=== PATIENT | female | born 1950 | race Caucasian/White ===

== ENCOUNTER 2019-12-15 14:22 | Inpatient (IN) | payer MEDICARE, OTHER ==
[~2019-12-15] VITALS: Ht 152.4 cm; Wt 74.8 kg
--- NOTE | 2019-12-15 15:04 | NUR ---
SLIP AND FALL, NOW CONFUSED, L CHEEK ABRASION, SEVERE R UPPER ARM PAIN PT TO BED 7, PLACED ON MONITOR, VSS, NAD NTOED, -SOB, PENDING ER PROVIDER LAURE
[2019-12-15] MEDS ORDERED: TDAP [DIPH/PERTUSSIS/TET] 0.5 ML VIAL IM ONE ×2 (15:30→20:45)
[2019-12-15 15:48] LABS: BASOPHILS % (AUTO) 0.3 % (0.0-2.0); EOSINOPHILS % (AUTO) 1.4 % (0.0-6.0); HEMATOCRIT 39 % (33-45); HEMOGLOBIN 12.9 g/dL (11.5-14.8); LYMPHOCYTES % (AUTO) 20.4 % (20.0-44.0); MEAN CORPUSCULAR HGB CONC 33 g/dl (31.0-36.0); MEAN CORPUSCULAR VOLUME 89 fL (82-100); MONOCYTES # (AUTO) 0.6 /CMM (0.1-1.30); MONOCYTES % (AUTO) 6.3 % (2.0-12.0); NEUTROPHILS # (AUTO) 6.9 /CMM (1.8-8.9); NEUTROPHILS % (AUTO) 71.6 % (43.0-81.0); PLATELET COUNT (AUTO) 250 /CMM (150-450); RED BLOOD CELL COUNT(AUTO) 4.39 MIL/uL (4.0-5.2); WHITE BLOOD COUNT (AUTO) 9.7 K/uL (4.3-11.0)
[2019-12-15 16:06] LABS: CALCIUM, SERUM 9.2 mg/dL (8.5-10.1); CREATININE 0.6 mg/dL (0.6-1.3); POTASSIUM 4.7 mmol/L (3.5-5.1)
--- NOTE | 2019-12-15 16:51 | NUR ---
CALLED [facility], PAGED DR OTOOLE
[2019-12-15] MEDS ORDERED: MORPHINE SULFATE INJ 2 MG/ML DISP.SYRIN IV ONE (17:00)
[2019-12-15] MEDS ORDERED: ONDANSETRON HCL/PF - ER 4 MG/2 ML VIAL IV ONE (17:00)
--- NOTE | 2019-12-15 17:03 | NUR ---
CALLED [facility], PLANTING SUPERVISOR WAS PAGED.
[2019-12-15] MEDS ORDERED: MORPHINE SULFATE INJ 2 MG/ML DISP.SYRIN ONE (17:08)
[2019-12-15] MEDS ORDERED: ONDANSETRON HCL/PF 4 MG/2 ML VIAL ONE (17:08)
--- NOTE | 2019-12-15 17:50 | NUR ---
CALLED [facility], ITS THERESA.
--- NOTE | 2019-12-15 19:49 | NUR ---
CALLED NURSING SUP FOR MS BED
[2019-12-15] MEDS ORDERED: ASPI-1152 PO (21:35)
[2019-12-15] MEDS ORDERED: CALC500T52 PO (21:35)
[2019-12-15] MEDS ORDERED: LISI-607 PO (21:37)
--- NOTE | 2019-12-15 21:39 | NUR ---
PT TRANSPORTED TO 2ND FLOOR MS
--- NOTE | 2019-12-15 21:40 | NUR ---
MS2/RN RECEIVED PATIENT FROM [facility] ADMITTED FOR RIGHT SHOULDER FRACTURE, PATIENT IS AWAKE, ALERT, AND ORIENTED, COMFORTABLE, NO DISTRESS NOTED, MADE COMFORTABLE IN BED, ADMISSION DONE PER PROTOCOL, ABLE TO TAKE PICTURE OF THE REDNESS AND ABRASIONS AT LEFT SIDE OF THE FACE BUT REFUSED FURTHER PHYSICAL/SKIN ASSESSMENT. SON AT BEDSIDE, INFORMATIONS TAKEN FROM PATIENT AND SON, PLAN OF CARE DISCUSSED VERBALIZED UNDERSTANDING AND AGREEMENT TO THE PLAN OF CARE, FALL PRECAUTIONS, WILL MONITOR.
[2019-12-15 22:00] VITALS: BP 131/64
[2019-12-15] MEDS ORDERED: ACETAMINOPHEN 325 MG TABLET PO PRN (23:00)
[2019-12-15] MEDS ORDERED: MINERAL OIL/PETROL OINT 396 GM JAR TP PRN (23:00)
[2019-12-15] MEDS ORDERED: Z GUARD REMEDY 2 OZ OINT TP PRN (23:00)
[2019-12-15] MEDS ORDERED: ONDANSETRON HCL/PF 4 MG/2 ML VIAL IVP PRN (23:00)
[2019-12-15] MEDS: HYDROCODONE/APAP 5/325MG 1 EACH TABLET PO PRN (23:10)
[2019-12-15] MEDS: IV NS 0.9% 1,000 ML IV PRN (23:14)
--- NOTE | 2019-12-16 00:40 | NUR ---
MS/RN PATIENT IS SLEEPING AT THIS TIME, APPEAR COMFORTABLE, NO SIGNS OF DISTRESS NOTED, CALL LIGHT IN REACH, WILL CONTINUE TO MONITOR.
[2019-12-16 06:27] LABS: BASOPHILS % (AUTO) 0.3 % (0.0-2.0); EOSINOPHILS % (AUTO) 0.2 % (0.0-6.0); HEMATOCRIT 35 % (33-45); HEMOGLOBIN 11.6 g/dL (11.5-14.8); LYMPHOCYTES # (AUTO) 1.7 /CMM (0.8-4.8); LYMPHOCYTES % (AUTO) 19.5 % (20.0-44.0); MEAN CORPUSCULAR HGB CONC 33 g/dl (31.0-36.0); MEAN CORPUSCULAR VOLUME 87 fL (82-100); MONOCYTES # (AUTO) 0.6 /CMM (0.1-1.30); MONOCYTES % (AUTO) 6.7 % (2.0-12.0); NEUTROPHILS # (AUTO) 6.3 /CMM (1.8-8.9); NEUTROPHILS % (AUTO) 73.3 % (43.0-81.0); PLATELET COUNT (AUTO) 233 /CMM (150-450); RED BLOOD CELL COUNT(AUTO) 4.02 MIL/uL (4.0-5.2); WHITE BLOOD COUNT (AUTO) 8.6 K/uL (4.3-11.0)
[2019-12-16 06:45] LABS: ALBUMIN 3.2 g/dL (3.4-5.0); BILIRUBIN,TOTAL 0.9 mg/dL (0.2-1.0); CALCIUM, SERUM 8.9 mg/dL (8.5-10.1); CREATININE 0.7 mg/dL (0.6-1.3); MAGNESIUM 1.9 mg/dL (1.8-2.4); POTASSIUM 4.1 mmol/L (3.5-5.1); TOTAL PROTEIN, SERUM 6.8 g/dL (6.4-8.2)
--- NOTE | 2019-12-16 06:45 | NUR ---
MS/RN PATIENT APPEAR SLEEPING, APPEAR COMFORTABLE, NO SIGNS OF DISTRESS NOTED, CALL LIGHT IN REACH, ALL NEEDS ATTENDED AT THIS TIME, WILL CONTINUE TO MONITOR.
[2019-12-16 07:46] LABS: THYROID STIMULATING HORMONE 1.589 uIU/mL (0.358-3.74)
[2019-12-16 08:00] VITALS: BP 149/73
--- NOTE | 2019-12-16 08:00 | NUR ---
RN NOTES RECEIVED PATIENT IN THE BED A/O X4, PATIENT HAS NO ACUTE RESPIRATORY DISTRESS,V/S STABLE, WAS COMPLAINING OF PAIN 3/ BUT REFUSED PAIN MEDICATION AT THIS TIME. INFUSING NS AT 75 ML/HR ON LEFT AC, INTACT. PATIENT USING BATHROOM WITH ASSIST, ELEVATED RIGHT SHOULDER USING PILLOWS, CALL LIGHT WITHIN TO REACH, SAFETY PRECAUTION MAINTAINED ALL THE TIME.,
[2019-12-16] MEDS: LISINOPRIL (20MG) 20 MG TABLET PO SCH (11:30)
[2019-12-16] MEDS: HYDROCODONE/APAP 5/325MG 1 EACH TABLET PO PRN ×2 (11:31→17:56)
--- NOTE | 2019-12-16 11:31 | NUR ---
rn notes administered narco 5/325 for pain right shoulder per patient request pain 05/10, v/s taken bp 149/88, p-68, also administered scheduled medication, safety precaution maintained all the time. keep right arm elevated.
--- NOTE | 2019-12-16 12:00 | NUR ---
RN NOTES SEEN PATIENT BY [employer]HIS CLAIMANT SLIM PATIENT WILL GOING SURGERY TOMORROW. SON WAS NEXT TO THE BED.
[2019-12-16 16:00] VITALS: BP 154/68
[2019-12-16] MEDS: IV NS 0.9% 1,000 ML IV PRN (17:51)
--- NOTE | 2019-12-16 17:56 | NUR ---
RN NOTES ADMINISTERED NARCO 5/325 MG PO PRN FOR RIGHT SHOULDER PAIN 05/10 PER PATIENT REQUEST, v/s taken bp -154/68, p-80. patient sign consent form. patient tolerated dinner well, call light within to reach, assist patient to the bathroom with assist, infusing ns at 75 ml/hr on left ac intact. safety precaution maintained all the time.
[2019-12-16 20:00] VITALS: BP 137/62
--- NOTE | 2019-12-16 21:04 | NUR ---
MS2/RN AT INITIAL ROUNDING AT 1930, RECEIVED PATIENT SLEEPING, APPEAR COMFORTABLE, NO S/S OF PAIN, NO SIGN OF DISTRESS NOTED, CALL LIGHT IN REACH, FALL RISK, FALL PRECAUTIONS PER PROTOCOL IN PLACE, WILL MONITOR.
[2019-12-17] VITALS (9 sets, daily range): BP systolic 101–168; BP diastolic 48–81
[2019-12-17] MEDS: HYDROCODONE/APAP 5/325MG 1 EACH TABLET PO PRN ×2 (01:12→22:51)
[2019-12-17 06:16] LABS: BASOPHILS % (AUTO) 0.3 % (0.0-2.0); EOSINOPHILS % (AUTO) 0.6 % (0.0-6.0); HEMATOCRIT 34 % (33-45); HEMOGLOBIN 11.5 g/dL (11.5-14.8); LYMPHOCYTES # (AUTO) 1.6 /CMM (0.8-4.8); LYMPHOCYTES % (AUTO) 22.5 % (20.0-44.0); MEAN CORPUSCULAR HGB CONC 34 g/dl (31.0-36.0); MEAN CORPUSCULAR VOLUME 87 fL (82-100); MONOCYTES # (AUTO) 0.6 /CMM (0.1-1.30); MONOCYTES % (AUTO) 8.1 % (2.0-12.0); NEUTROPHILS % (AUTO) 68.5 % (43.0-81.0); PLATELET COUNT (AUTO) 202 /CMM (150-450); WHITE BLOOD COUNT (AUTO) 7.2 K/uL (4.3-11.0)
--- NOTE | 2019-12-17 06:32 | NUR ---
MS2/RN PATIENT IS STILL SLEEPING AT THIS TIME, APPEAR COMFORTABLE, NO SIGNS OF DISTRESS NOTED, CALL LIGHT IN REACH, ALL NEEDS ATTENDED AT THIS TIME, WILL CONTINUE TO MONITOR.
[2019-12-17 06:44] LABS: CALCIUM, SERUM 8.6 mg/dL (8.5-10.1); CREATININE 0.6 mg/dL (0.6-1.3); POTASSIUM 3.8 mmol/L (3.5-5.1)
--- NOTE | 2019-12-17 07:30 | NUR ---
RN MS NOTES PT IN BED, AWAKE, ALERT AND ORIENTED, DENIES PAIN AT THIS TIME, NOT IN DISTRESS, ASSISTED TO BATHROOM NEEDED, I FLUIDS INFUSING WELL, INFORMED OF PLAN OF CARE, VERBALIZED UNDERSTANDING, NEEDS ATTENDED.
[2019-12-17 07:57] LABS: IRON, SERUM 32 ug/dl (50-175); TOTAL IRON BINDING CAPACITY 250 ug/dl (250-450)
[2019-12-17] MEDS ORDERED: ANESTHESIA TRAY IN PYXIS 1 EA TRAY MC ONE (08:34)
[2019-12-17] MEDS ORDERED: BUPIVACAINE 0.5 % PF 150 MG/30 ML VIAL ONE (08:34)
--- NOTE | 2019-12-17 08:40 | NUR ---
RN MS NOTES PT PICKED UP BY O.R. STAFF FOR SURGERY, LEFT VIA BED IN STABLE CONDITION.
[2019-12-17] MEDS ORDERED: FENTANYL PF 100MCG/2ML AMPUL ONE (08:50)
[2019-12-17] MEDS ORDERED: MIDAZOLAM HCL 2 MG/2ML VIAL ONE (08:50)
[2019-12-17] MEDS ORDERED: BUPIVACAINE MPF 0.5% W/EPI INJ 30 ML VIAL ONE (08:51)
[2019-12-17] MEDS ORDERED: SEVOFLURANE 250 ML BOTTLE IH ONE (08:51)
[2019-12-17] MEDS ORDERED: DESFLURANE 240 ML BOTTLE IH ONE (08:51)
[2019-12-17] MEDS: LISINOPRIL (20MG) 20 MG TABLET PO SCH (09:00)
[2019-12-17 10:09] LABS: FERRITIN 120 ng/mL (8-388); THYROID STIMULATING HORMONE 3.303 uIU/mL (0.358-3.74)
[2019-12-17] MEDS ORDERED: NS 0.9% IV ONE (10:30)
[2019-12-17] MEDS ORDERED: TRANEXAMIC ACID IV ONE (10:30)
--- NOTE | 2019-12-17 12:58 | NUR ---
RN MS NOTES PT BACK FROM SURGERY, AWAKE, SLEEPY, NO COMPLAINT OF PAIN AT THIS TIME, NOT IN DISTRESS, SLING AT LEFT ARM IN PLACE, DRESSING AT RIGHT SHOULDER INTACT AND CLEAN, ICE PACK ON, VITALS STABLE, RECORDED, POST OP ORDERS RECEIVED, NOTED AND CARRIED OUT, KEPT PT COMFORTABLE AND SPEECH LANGUAGE ASSISTANT BED.
[2019-12-17] MEDS: IV NS 0.9% 1,000 ML IV PRN (13:48)
[2019-12-17] MEDS: CEFAZOLIN 2 GM in IV D5W 100 ML IV SCH (17:21)
--- NOTE | 2019-12-17 18:20 | NUR ---
RN MS NOTES PT IN BED, AWAKE, ALERT AND ORIENTED, EATING DINNER, NO COMPLAINT OF PAIN AT THIS TIME, NOT IN DISTRESS, NO BLEEDING NOTED AT DRESSING TO RIGHT ARM, SLING IN PLACE, SON HAILEE INFORMED OF PLAN OF CARE, VERBALIZED UNDERSTANDING, IV FLUIDS INFUSING WELL, ALL NEEDS ATTENDED.
--- NOTE | 2019-12-17 19:40 | NUR ---
MS RN NOTES PATIENT IN BED, AWAKE, ALERT AND ORIENTED X 4. BREATHING EVEN AND UNLABORED ON ROOM AIR. SHOWS NO SIGNS OF ACUTE RESPIRATORY DISTRESS. NO ACUTE PAIN. SLING ON R SHOULDER. IV ON LAC 20G RUNNING NS AT 75ML/HR. SHOWS NO SIGNS OF INFILTRATION, NO REDNESS. ITS CLEAN DRY AND INTACT. SAFETY PRECAUTIONS IN PLACE. BED IN LOWEST POSITION, LOCKED, AND CALL LIGHT KEPT WITHIN REACH. WILL CONTINUE TO MONITOR.
--- NOTE | 2019-12-17 22:51 | NUR ---
RN NOTES ADMINISTERED NORCO 5/325 ORDERED FOR R SHOULDER PAIN 8/10 AT PATIENT REQUEST. VSS. PRIMARY NURSE AWARE.
[2019-12-18] MEDS: CEFAZOLIN 2 GM in IV D5W 100 ML IV SCH (00:51)
[2019-12-18] MEDS ORDERED: PROPRANOLOL HCL 10 MG TABLET PO PRN (01:50)
[2019-12-18 02:00] VITALS: BP 147/72
--- NOTE | 2019-12-18 02:05 | NUR ---
MS RN NOTES PATIENT COMPLAINING OF FEELING OF HEART RACING. STATING SHE TAKES PROPRANOLOL AT HOME EVERY NIGHT. PREVIOUS BP 105/58 AND HR 93. NOW IT IS 147/72 AND HR 98. CONTACTED KENNEDY XIONG FOR ORDER OF PROPRANOLOL 10MG. ORDER 10MG PROPRANOLOL HS PRN INSOMNIA. ORDER VERIFIED AND FOLLOW THROUGH. WILL CONTINUE TO MONITOR.
--- NOTE | 2019-12-18 02:07 | NUR ---
MS RN NOTES PATIENT REQUEST PROPRANOLOL. GIVEN 10MG PROPRANOLOL AT 0207. WILL CONTINUE TO MONITOR.
[2019-12-18] MEDS: HYDROCODONE/APAP 5/325MG 1 EACH TABLET PO PRN ×4 (02:59→15:15)
--- NOTE | 2019-12-18 02:59 | NUR ---
MS RN NOTES PATIENT COMPLAINING OF PAIN 04/18. GIVEN NORCO AT 0259 PRN. WILL CONTINUE TO MONITOR.
[2019-12-18 03:07] VITALS: BP 141/70
--- NOTE | 2019-12-18 03:07 | NUR ---
MS RN NOTES PATIENT VITALS AN HOUR AFTER PRN PROPRANOLOL 141/70 AND HR 81. WILL CONTINUE TO MONITOR.
[2019-12-18] MEDS: IV NS 0.9% 1,000 ML IV PRN (06:36)
[2019-12-18 06:58] LABS: BASOPHILS % (AUTO) 0.1 % (0.0-2.0); EOSINOPHILS % (AUTO) 0.1 % (0.0-6.0); HEMATOCRIT 29 % (33-45); HEMOGLOBIN 9.6 g/dL (11.5-14.8); LYMPHOCYTES # (AUTO) 1.1 /CMM (0.8-4.8); LYMPHOCYTES % (AUTO) 11.4 % (20.0-44.0); MEAN CORPUSCULAR HGB CONC 33 g/dl (31.0-36.0); MEAN CORPUSCULAR VOLUME 89 fL (82-100); MONOCYTES % (AUTO) 9.9 % (2.0-12.0); NEUTROPHILS # (AUTO) 7.9 /CMM (1.8-8.9); NEUTROPHILS % (AUTO) 78.5 % (43.0-81.0); PLATELET COUNT (AUTO) 186 /CMM (150-450); RED BLOOD CELL COUNT(AUTO) 3.25 MIL/uL (4.0-5.2)
--- NOTE | 2019-12-18 07:02 | NUR ---
MS RN NOTES PATIENT IN BED, WITH INTERMITTENT SLEEP, ALERT AND ORIENTED X 4. BREATHING EVEN AND UNLABORED ON ROOM AIR. SHOWS NO SIGNS OF ACUTE RESPIRATORY DISTRESS. NO ACUTE PAIN. SLING ON R SHOULDER. IV ON LAC 20G RUNNING NS AT 75ML/HR. SHOWS NO SIGNS OF INFILTRATION, NO REDNESS. ITS CLEAN DRY AND INTACT. ALL DUE MEDICATIONS GIVEN. SAFETY PRECAUTIONS IN PLACE. BED IN LOWEST POSITION, LOCKED, AND CALL LIGHT KEPT WITHIN REACH. WILL ENDORSE TO ONCOMING NURSE.
[2019-12-18 07:05] LABS: ALANINE AMINOTRANSFERASE 23 U/L (12-78); ALBUMIN 2.6 g/dL (3.4-5.0); ALKALINE PHOSPHATASE 45 U/L (46-116); ASPARTATE AMINOTRANSFERASE 31 U/L (15-37); BILIRUBIN,TOTAL 0.8 mg/dL (0.2-1.0); CALCIUM, SERUM 8.1 mg/dL (8.5-10.1); CARBON DIOXIDE 25 mmol/L (21-32); CHLORIDE 103 mmol/L (98-107); CREATININE 0.6 mg/dL (0.6-1.3); GLUCOSE 122 mg/dL (74-106); MAGNESIUM 1.8 mg/dL (1.8-2.4); PHOSPHORUS 2.9 mg/dL (2.5-4.9); POTASSIUM 3.7 mmol/L (3.5-5.1); SODIUM SERUM 137 mmol/L (136-145); TOTAL PROTEIN, SERUM 6.1 g/dL (6.4-8.2); UREA NITROGEN, BLOOD 17 mg/dL (7-18)
--- NOTE | 2019-12-18 07:15 | NUR ---
MS RN NOTES PATIENT COMPLAINING OF PAIN ON SURGICAL SITE 04/09. GIVEN NORCO PRN 0715. WILL CONTINUE TO MONITOR.
--- NOTE | 2019-12-18 07:30 | NUR ---
RN MS NOTES PT AWAKE, ALERT AND ORIENTED, SITTING ON HER CHAIR, EATING BREAKFAST, PAIN MEDS GIVEN BY SHEAR HELPER NURSE, PT AMBULATES TO THE BATHROOM WITH STEADY GAIT, SLING AT RIGHT ARM ON, NEEDS ATTENDED.
[2019-12-18 08:00] VITALS: BP 106/54
[2019-12-18 09:00] VITALS: BP 106/54
[2019-12-18] MEDS: LISINOPRIL (20MG) 20 MG TABLET PO SCH (09:00)
--- NOTE | 2019-12-18 10:53 | NUR ---
RN MS NOTES PT SEEN AND EXAMINED BY DR. CASTRO, PER PT OK TO GO HOME IF CLEARED BY ORTHO, PT INFORMED.
--- NOTE | 2019-12-18 11:05 | NUR ---
RN MS NOTES PT SEEN AND EXAMINED BY CHRIS SMALLS, CLEARANCE GIVEN TO PT TO GO HOME.
--- NOTE | 2019-12-18 12:31 | NUR ---
RN MS NOTES PT IN BED, EATING LUNCH, PAIN MEDS GIVEN ORDERED, DISCHARGE ORDER GIVEN BY DR. CASTRO, DISCHARGE AND MEDICATION INSTRUCTIONS GIVEN TO PT AND SON HAILEE BY PHONE, VERBALIZED UNDERSTANDING.
[2019-12-18] MEDS ORDERED: SOD FERRIC GLUC 125 MG in IV NS 0.9% 100 ML IV SCH (14:00)
--- NOTE | 2019-12-18 15:25 | NUR ---
RN MS NOTES PT AWAKE, ALERT AND ORIENTED, PAIN MEDS GIVEN ORDERED FOR RIGHT SHOULDER PAIN, NOT IN DISTRESS, FERRLICIT IV GIVEN, SKIN CHECK AND PHOTOS DONE, BELONGINGS ACCOUNTED FOR, NEW PRESCRIPTION GIVEN TO PT, INSTRUCTED PT TO FOLLOW UP WITH DR. HOLLIS IN 1-2 WEEKS, INFORMATION PROVIDED TO PT, ASSISTED TO HOSPITAL LOBBY BY POULTICE MACHINE OPERATOR VIA WHEELCHAIR, MET AND PICKED UP BY SON HAILEE AT THE LOBBY, LEFT VIA PRIVATE CAR IN STABLE CONDITION.
== END 2019-12-18 15:25 | disposition home or self-care (01) | DRG 483 ==
LOC: ER 14:23 → MEDSG2 20:42
PROVIDERS: ADMIT Nurse Practitioner Acute Care; ATTEND Student in an Organized Health Care Education/Training Program
PROC: 0RRJ00Z Replacement of Right Shoulder Joint with Reverse Ball and Socket Synthetic Substitute, Open Approach (ICD-10-PCS; principal; 2019-12-17)
DX: S42.211A Unspecified displaced fracture of surgical neck of right humerus, initial encounter for closed fracture (principal); I10 Essential (primary) hypertension; E78.5 Hyperlipidemia, unspecified; S02.2XXA Fracture of nasal bones, initial encounter for closed fracture; W18.30XA Fall on same level, unspecified, initial encounter; Y92.89 Other specified places as the place of occurrence of the external cause; S00.81XA Abrasion of other part of head, initial encounter; E66.9 Obesity, unspecified; Z68.32 Body mass index [BMI] 32.0-32.9, adult; D64.9 Anemia, unspecified; R79.89 Other specified abnormal findings of blood chemistry
CPT/HCPCS: 36415; 70450-TC; 70486-TC; 71045-TC; 73030-TC; 73060-TC; 73080-TC; 73200-TC; 80048-TC; 80053-TC; 80061-TC; 82728-TC; 83540-TC; 83735-TC; 84100-TC; 84439-TC; 84443-TC; 84484-TC; 85025-TC; 85610-TC; 85730-TC; 86850-TC; 87081-TC; 90715; 93307-TC; G0378; J0690; J1100; J1885; J2250; J2270; J2370; J2405; J2704; J2916; J3010; J3490; J7030; J7060

== ENCOUNTER 2024-11-29 12:56 | Emergency (ER) | payer MEDICARE, OTHER ==
[~2024-11-29] VITALS: Ht 157.5 cm; Wt 90.7 kg
[~2024-11-29 12:56] MED LIST: LISI-768 PO
[2024-11-29] MEDS ORDERED: KETOROLAC TROMETHAMINE INJ 30 MG/ML VIAL ONE (14:38)
[2024-11-29] MEDS: KETOROLAC TROMETHAMINE INJ 30 MG/ML VIAL IM ONE (14:42)
[2024-11-29] MEDS ORDERED: KETO10TA2 PO (15:55)
[2024-11-29 16:09] VITALS: BP 137/85; TEMP 98; O2SAT 98
== END 2024-11-29 16:10 | disposition home or self-care (01) ==
LOC: ER 13:02
DX: M25.572 Pain in left ankle and joints of left foot (principal); M19.072 Primary osteoarthritis, left ankle and foot; M79.672 Pain in left foot; M79.671 Pain in right foot; I10 Essential (primary) hypertension; Z79.899 Other long term (current) drug therapy; Z60.2 Problems related to living alone
CPT/HCPCS: 99284; 96372; 73610; 73630; 73564 ×2; J1885